=== PATIENT | female | born 1995 | race Hispanic/Latino ===

== ENCOUNTER → 2020-02-02 17:17 | Outpatient (CLI) | payer OTHER, SELFPAY ==
[2020-02-02 18:24] LABS: Specimen Label KIT TEST
[2020-02-04 11:49] LABS: HIV 1 & 2 Ab/Ag 4th Gen Combo NEGATIVE (NEGATIVE)
== END ==
PROVIDERS: Referring Provider Obstetrics & Gynecology; Visit Provider Obstetrics & Gynecology
DX: Z34.90 Encounter for supervision of normal pregnancy, unspecified, unspecified trimester (principal); Z36.0 Encounter for antenatal screening for chromosomal anomalies
CPT/HCPCS: 36415; 87389

== ENCOUNTER → 2020-02-26 16:46 | Outpatient (CLI) | payer OTHER, SELFPAY ==
[2020-02-29 06:27] LABS: AFP Value 43.9 ng/mL (.); Gest Age on Col Date 15.3 weeks (.); Gestational Age Ultrasound (.); Insulin Dep Diabetes No (.); OSBR Risk 1IN 2270 (.); Results Report (.); Test Results *Screen Negative* (.)
== END ==
PROVIDERS: Referring Provider Obstetrics & Gynecology; Visit Provider Obstetrics & Gynecology
DX: Z34.02 Encounter for supervision of normal first pregnancy, second trimester (principal); Z3A.15 15 weeks gestation of pregnancy
CPT/HCPCS: 36415; 82105

== ENCOUNTER → 2020-04-01 15:35 | Outpatient (CLI) | payer OTHER, SELFPAY ==
--- NOTE | 2020-04-01 15:36 | DI.US.S_ITS ---
PROCEDURE: US OB >= 14 WEEKS FETUS INDICATIONS: 20 week anatomy OUTSIDE/PRIOR DATING DATA: Last menstrual period (LMP): Not known. LMP-based estimated date of delivery (BLOSSOM): Not applicable First dating scan (date and location): April 01, 2020. Estimated date of delivery (BLOSSOM) from first dating scan: August 12, 2020. TECHNIQUE: Real-time scanning was performed of the fetus, with image documentation and biometric measurements. Endovaginal scanning: Performed COMPARISON: [facility], , OB <= 14 WEEKS FETUS, 02/02/2020, 16:56. FINDINGS: General: A single living intrauterine gestation is present. Presentation: Transverse/breech Placenta: Placental position is anterior, without previa. Amniotic fluid index: 12.7 cm, normal range is 5-24 cm. heart rate: 152 beats per minute. Maternal cervical canal: Closed and 4.6 cm long. Normal lower limit is 2.5 cm. biometrics: Biparietal diameter: 20 weeks 2 days Head circumference: 20 weeks 2 days Abdominal circumference: 21 weeks 6 days Femur length: 21 weeks 2 days Estimated gestational age from initial scan: not applicable. Composite gestational age from present scan: 21 weeks 0 days Estimated weight: 422 grams Measurement variability for biometric dating: +/- 7 days from 14 weeks to 15 weeks 6 days gestation, +/- 10 days from 16 weeks to 21 weeks 6 days gestation, +/- 2 weeks from 22 weeks to 27 weeks 6 days gestation, +/- 3 weeks for 28 weeks gestation or later. weight reference: 4500 g or EFW >90/95% is considered macrosomia or large for gestational age. EFW <10% is small for gestational age. EFW 5% or less is considered intra-uterine growth restriction. Anatomic survey: Neuro: Ventricles are non-dilated at less than 10 mm. Cisterna magna is normal at 3-11 mm. Cerebellum is normal in size and morphology. Nuchal skin fold: Normal at less than 6 mm between 14-21 weeks gestational age. Face: Nose and lips, facial profile are normal. Spine: No evidence for spina bifida. Heart: 4-chambered heart is present, with normal ventricular outflow tracts. Diaphragm: Diaphragm is intact. Stomach: Left-sided stomach is present. Kidneys: No hydronephrosis. Normal is less than 5 mm in 2nd trimester, less than 7 mm in 3rd trimester. Cord: 3-vessel cord has orthotopic insertion. Bladder: Normal in size. Extremities: All 4 extremities identified. IMPRESSION: 1. Single living intrauterine with ultrasound estimated gestational age of 21 weeks 0 days corresponding ultrasound BLOSSOM of August 12, 2020. 2. Normal anatomic survey Dictated by: Angelika Harrison MD, PhD on 04/01/2020 at 21:51 Approved by: Angelika Harrison MD, PhD on 04/02/2020 at 14:54
== END ==
PROVIDERS: Referring Provider Obstetrics & Gynecology; Visit Provider Obstetrics & Gynecology
DX: Z34.02 Encounter for supervision of normal first pregnancy, second trimester (principal); Z3A.21 21 weeks gestation of pregnancy
CPT/HCPCS: 76811

== ENCOUNTER → 2020-04-22 13:54 | Outpatient (CLI) | payer OTHER, SELFPAY ==
[2020-04-22 15:14] LABS: Free T4, Direct Thyroxine 0.86 ng/dL (0.78-2.19)
[2020-04-22 15:28] LABS: Thyroid Stimulating Hormone 10.4 uIU/mL (0.47-4.68)
== END ==
PROVIDERS: Referring Provider Obstetrics & Gynecology; Visit Provider Obstetrics & Gynecology
DX: C73 Malignant neoplasm of thyroid gland (principal)
CPT/HCPCS: 36415; 84439; 84443

== ENCOUNTER → 2020-05-28 08:39 | Outpatient (CLI) | payer OTHER, SELFPAY ==
[2020-05-28 10:09] LABS: Hematocrit 36.5 % (36-46); Hemoglobin 11.9 g/dL (12.0-16.0)
[2020-05-28 10:22] LABS: GTT (PREG) 1 Hour PP 50gm Dose 121 mg/dL (76-139)
== END ==
PROVIDERS: Referring Provider Obstetrics & Gynecology; Visit Provider Obstetrics & Gynecology
DX: Z34.02 Encounter for supervision of normal first pregnancy, second trimester (principal); Z3A.27 27 weeks gestation of pregnancy
CPT/HCPCS: 36415; 82950; 85014; 85018

== ENCOUNTER → 2020-07-18 11:55 | Outpatient (CLI) | payer OTHER, SELFPAY ==
[2020-07-19 15:35] LABS: Strep Grp B PCR NEG for Grp B Strep
== END ==
PROVIDERS: Referring Provider Obstetrics & Gynecology; Visit Provider Obstetrics & Gynecology
DX: Z34.03 Encounter for supervision of normal first pregnancy, third trimester (principal); Z3A.35 35 weeks gestation of pregnancy
CPT/HCPCS: 87653

== ENCOUNTER 2020-08-07 08:37 | Outpatient (CLI) | payer OTHER, SELFPAY ==
--- NOTE | 2020-08-07 09:12 | PM.OBTRLD ---
Visit Information Visit Information Date of evaluation: 08/07/20 Primary OB Provider: Tarsha Moore On-call OB Provider: Mikki Peña Reason for Evaluation: Yes rupture of membranes Vital Signs Vital Signs: blood pressure 124/72, pulse of 80, temperature 36.2? [facility] Medical History (Updated 08/07/20 @ 09:14 by Mikki Peña MD) Nasal fracture (~2013) Thyroid cancer (~2011) Surgical History (Updated 01/28/20 @ 08:37 by Norma Troncoso, RN) S/P surgery on nasal septum (~2016) Family History (Updated 01/28/20 @ 08:45 by Norma Troncoso, RN) Mother No problems noted. Father Cancer Grandmother No problems noted. Grandfather Diabetes mellitus Grandmother No problems noted. Grandfather Diabetes mellitus Family/Other Spina bifida Social History marital status: number of children: 0 household members: spouse lives independently: Yes caregiver/support person: No housing: house pets and animals: Yes (1 dog -- Decisive BI collie, in training, seems safe.) education level: college occupational status: employed current occupational exposures/hazards: Yes (Some aggressive children, but she is no longer seeing those children. ) romy/scientologist: Sikhism special romy needs: No seatbelt use: always Smoking Status: Never smoker second hand exposure: Yes (A friend smokes, she is staying away from it. ) alcohol intake: former substance use type: does not use during the past year weight has: remained stable well-balanced diet: daily or most days daily servings fruits/ve-4 caffeine: No (Not currently, aversion to coffee now.) Type(s) of exercise: walking and normal ROM and activity frequency: 5-6 times per week Review of Systems Review of Systems Narrative: Patient had multiple episodes of gushing fluid overnight with no contractions. Good movement. No fevers. ROS: Yes All systems reviewed with the patient and are negative except as otherwise documented Evaluation Evaluation Baseline heart rate: 140 Variability: Moderate (11-25) monitor accelerations: Present Monitor Decelerations: Absent Contraction Frequency (minutes): 7 Uterine Contraction Intensity: Mild Category of Tracing: Reactive Status: Category l Non-invasive Membranes Rupture Test: negative Diagnosis, Plan/Disposition Final Diagnosis (1) False labor: Status: Acute (2) 38 weeks gestation of : Status: Acute Plan/Disposition Plan: Patient evaluated for possible rupture membranes with negative testing. Precautions reviewed OB Disposition: home
== END 2020-08-07 09:18 | disposition home or self-care (01) ==
LOC: OB 08-08 14:49
PROVIDERS: Referring Provider Specialist; Visit Provider Specialist
DX: Z03.71 Encounter for suspected problem with amniotic cavity and membrane ruled out (principal); O47.1 False labor at or after 37 completed weeks of gestation; Z3A.38 38 weeks gestation of pregnancy
CPT/HCPCS: 59025; 84112; G0378; G0379

== ENCOUNTER 2020-08-13 02:15 | Outpatient (CLI) | payer OTHER, SELFPAY | END 2020-08-13 03:10 | disposition home or self-care (01) | LOC: LABOR 02:40 → OB 08-16 07:36 | PROVIDERS: Referring Provider Obstetrics & Gynecology; Visit Provider Obstetrics & Gynecology | DX: O36.8130 Decreased fetal movements, third trimester, not applicable or unspecified (principal); Z3A.39 39 weeks gestation of pregnancy | CPT/HCPCS: 59025; 84112; G0378; G0379 ==

== ENCOUNTER 2020-08-13 23:35 | Inpatient (IN) | payer OTHER, SELFPAY ==
[2020-08-14 00:37] LABS: Add Manual Diff / Slide Review NO; Basophils Absolute Auto 100 /uL (0-100); Basophils Percent Auto 0.5 % (0-2); Eosinophils Absolute Auto 100 /uL (0-450); Eosinophils Percent Auto 1.2 % (2-4); Hematocrit 36.3 % (36-46); Hemoglobin 11.8 g/dL (12.0-16.0); Lymphocytes Absolute Auto 900 /uL (1100-4500); Lymphocytes Percent Auto 7.5 % (25-40); Mean Corpuscular HGB Conc 32.6 % (30-36); Mean Corpuscular Hemoglobin 28.2 PG (26-34); Mean Corpuscular Volume 86.6 fL (80-100); Monocytes Absolute Auto 800 /uL (0-900); Monocytes Percent Auto 6.8 % (3-14); Neutrophils Absolute Auto 10300 /uL (1500-7000); Platelet Count 175 X10^3/uL (150-400); Red Blood Cell Count 4.19 X10^6/uL (4.0-5.2); Red Cell Distribution Width 14.5 % (11.6-14.8); White Blood Cell Count 12.3 X10^3/uL (4.5-11.0)
[2020-08-14 01:24] LABS: COVID19 - ADMIT (NP swab/PCR) Negative (Negative)
--- NOTE | 2020-08-14 01:49 | PM.AN.REGBLK ---
Regional Block Pre-procedure Procedure: Continuous Lumbar Epidural for L&D Attending OB provider: Kp Bassett PM/JHONNY narrative: term labor, no complications ASA Class: II Labs: Hct 36.3 % (36-46) 08/14/20 00:20 Plt Count 175 X10^3/uL (150-400) 08/14/20 00:20 Medications: Current Medications Generic Name Dose Route Start Last Admin Trade Name Freq PRN Reason Stop Dose Admin Carboprost Tromethamine 250 mcg 08/14/20 00:24 Carboprost 250 Mcg/Ml Ampul IM Q90M PRN Bleeding Diphenhydramine HCl 25 mg 08/14/20 01:40 Diphenhydramine 50 Mg/Ml Vial IV Q10M PRN Pruritis Fentanyl 50 mcg 08/14/20 00:24 Fentanyl 100 Mcg/2 Ml Inj IV Q1H PRN Pain, Moderate (4-6) Lactated Ringer's 1,000 mls @ 100 mls/hr 08/14/20 00:30 Lactated Ringers IV CONT ARTIS Oxytocin/Lactated Ringer's 30 unit in 500 mls @ 200 mls/hr 08/14/20 00:24 Oxytocin Premix IV CONT PRN Bleeding Protocol Tranexamic Acid 1,000 mg/ 100 mls @ 200 mls/hr 08/14/20 00:24 Sodium Chloride IV NOW PRN Bleeding FENT 2MCG/ML BUPIV 0.125% EPI 200 mcg in 100 mls @ 6 mls/hr 08/14/20 01:45 Fentanyl/Bupiv/Ns 2mcg/Ml - 0.125% EPIDURAL CONT ARTIS Methylergonovine Maleate 0.2 mg 08/14/20 00:24 Methylergonovine 0.2 Mg Tablet PO Q6HR PRN Heavy Bleeding Methylergonovine Maleate 0.2 mg 08/14/20 00:24 Methylergonovine 0.2 Mg/Ml Vial IM NOW PRN Bleeding Misoprostol 800 mcg 08/14/20 00:24 Misoprostol 200 Mcg Tablet NV NOW PRN Bleeding Misoprostol 1,000 mcg 08/14/20 00:24 Misoprostol 200 Mcg Tablet NV NOW PRN Bleeding Misoprostol 400 mcg 08/14/20 00:24 Misoprostol 200 Mcg Tablet SL NOW PRN Bleeding Naloxone HCl 0.2 mg 08/14/20 00:24 Naloxone 0.4 Mg/Ml Vial IV Q2MIN PRN Opiate Reversal Ondansetron HCl 4 mg 08/14/20 00:24 Ondansetron 4 Mg/2 Ml Inj IV Q4HR PRN Nausea And Vomiting Oxytocin 10 unit 08/14/20 00:24 Oxytocin 10 Unit/Ml Vial IM NOW PRN Bleeding Allergies: Allergies Allergy/AdvReac Type Severity Reaction Status Date / Time No Known Drug Allergies Allergy Verified 01/28/20 08:30 Procedure Insertion date: 08/14/20 Insertion time: 01:35 Prep/Local: betadine x3 Interspace: L3-4 Patient position: sitting Needle: 18 gauge PlayLabtead (CSE: 27g Pencan through Hustead, brief L paresthesia, clear CSF, unable to aspirate, repositioned Hustead, repeated 27g Pencan through Hustead, no paresthesia, clear CSF, 1mL 0.25% bupivacaine) Loss of resistance with: saline JOSE DANIEL at (cm): 5 Catheter placed at SKIN (cm): 10 Catheter in SPACE (cm): 5 Insertion: No CSF, No Blood, No Paresthesia with insertion, No Paresthesia with injection and No Test dose reaction Initial Medications TEST DOSE time: 01:35 BOLUS DOSE time: 01:48 BOLUS DOSE (mL): 5 BOLUS DOSE med: other (infusate) Infusion INFUSION: 0.125% bupivacaine and with fentanyl 2 mcg/mL Initial rate (mL/hr): 8 Post-procedure Anesthesia time START: 01:22 Anesthesia time END: 08:44
[2020-08-14] MEDS: LACTATED RINGERS 1,000 ML 100 ML IV ×2 (02:15→10:11)
[2020-08-14] MEDS: OXYTOCIN PREMIX 30 UNIT/500 ML PLAST..BAG IV (05:57)
[2020-08-14] MEDS: FENT 2MCG/ML BUPIV 0.125% EPI 200 MCG/100 ML PLAST..BAG 8 MCG EPIDURAL (08:00)
--- NOTE | 2020-08-14 09:09 | PM.OBHP.1 ---
OB HPI Date/Time Date of admission: 08/14/20 Date Patient Seen: 08/14/20 Time Patient Seen: 09:10 History of Present Condition Chief complaint: Evaluation of Labor : 1 Para: 0 Estimated Date of Delivery: 08/17/20 Estimated Gestational Age (weeks): 39+4 Narrative: Tanya Renee is a 25 year old BLOSSOM 08/17/[address] [place] [address] who transferred care from the [facility]. Patient had stopped oral contraceptive pills 3 months prior to conception, and had taken Plan B with that cycle. The patient reports mild and improving nausea, as no other complaints today obstetrical or otherwise. This is an unplanned but desired , and she has a supportive . 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 TFTs were normal in the 1st trimester, with plan as above. Her course has largely been uneventful. GBS negative. Growth 07/26/2020, 6 lb 9 oz., BPP 8/8 with RUDDY 15.1. She presents now in early labor with demonstrable cervical change in the face of Q 3-5 minute contractions and increasing discomfort. A continuous lumbar epidural has been placed and is providing the patient with excellent pain relief in labor. heart rate is category 1 with baseline 125 B p.m., accelerations noted, no decelerations noted, moderate variability. Contractions are q.3h to 4 minutes and she is currently on Pitocin 4 units for augmentation. History of Present care: good care Dating criteria: LMP confirmed by 1st trimester US Obstetrical complications: none Preadmission Labs Blood type: O (+) positive -: Antibody screen: negative, GBS status: negative, HBsAG: negative, HIV: negative and RPR/VDLR: negative -: Chlamydia screen: not detected and Gonorrhea screen: not detected -: Rubella: immune and Varicella: immune HCT: 36.3 HCAB: negative Quad screen: Normal 1 hr GTT: 121 Prior (ies) History: Primigravida Evaluation Evaluation Baseline heart rate: 125 Variability: Moderate (11-25) monitor accelerations: Present Monitor Decelerations: Absent Contraction Frequency (minutes): 3 Uterine Contraction Intensity: Strong/Firm Category of Tracing: Reactive Status: Category l Cervical dilation (cm): 10 Cervical effacement (%): 100 station: +1 Laboratory results: Laboratory Tests 08/14/20 08/14/20 08/14/20 00:20 00:20 00:20 WBC 12.3 H RBC 4.19 Hgb 11.8 L Hct 36.3 MCV 86.6 MCH 28.2 MCHC 32.6 RDW 14.5 Plt Count 175 Neut % (Auto) 84.0 H Lymph % (Auto) 7.5 L [place] % (Auto) 6.8 Eos % (Auto) 1.2 L Baso % (Auto) 0.5 Neut # (Auto) 21741 H Lymph # (Auto) 900 L [place] # (Auto) 800 Eos # (Auto) 100 Baso # (Auto) 100 SARS-CoV-2 (PCR) Negative Blood Type O Positive Antibody Screen Negative [facility] Medical History Nasal fracture (~2013) Thyroid cancer (~2011) Surgical History (Updated 01/28/20 @ 08:37 by Norma Troncoso RN) S/P surgery on nasal septum (~2016) Family History (Updated 01/28/20 @ 08:45 by Norma Troncoso, CHUY) Mother No problems noted. Father Cancer Grandmother No problems noted. Grandfather Diabetes mellitus Grandmother No problems noted. Grandfather Diabetes mellitus Family/Other Spina bifida Social History marital status: number of children: 0 household members: spouse lives independently: Yes caregiver/support person: No housing: house pets and animals: Yes (1 dog -- Border collie, in training, seems safe.) education level: college occupational status: employed current occupational exposures/hazards: Yes (Some aggressive children, but she is no longer seeing those children. ) romy/restorationism: Confucianism special romy needs: No seatbelt use: always Smoking Status: Never smoker second hand exposure: Yes (A friend smokes, she is staying away from it. ) alcohol intake: former substance use type: does not use during the past year weight has: remained stable well-balanced diet: daily or most days daily servings fruits/ve-4 caffeine: No (Not currently, aversion to coffee now.) Type(s) of exercise: walking and normal ROM and activity frequency: 5-6 times per week Meds Home Medications and Allergies Home Medications Medication Instructions Recorded Confirmed Type cholecalciferol (vitamin D3) 125 125 mcg PO DAILY 01/28/20 01/28/20 History mcg (5,000 unit) capsule levothyroxine 150 mcg tablet 150 mcg PO DAILY 01/28/20 01/28/20 History methylcellulose (laxative) 500 mg 500 mg PO DAILY 01/28/20 01/28/20 History tablet (Fiber Therapy (methylcellulose)) prenat.vits,bharathi,[id number] 1 tab PO DAILY 01/28/20 01/28/20 History Allergies Allergy/AdvReac Type Severity Reaction Status Date / Time No Known Drug Allergies Allergy Verified 01/28/20 08:30 Review of Systems Review of Systems ROS: Yes All systems reviewed with the patient and are negative except as otherwise documented Exam Const General: cooperative and comfortable Nutritional Appearance: well nourished Orientation: alert and oriented x3 HENMT Head: normal to inspection Ears: hearing grossly normal bilaterally Nose: external nose normal Eyes General: appearance normal, both eyes and all related structures Neck Neck: normal visual inspection Resp Effort & Inspection: normal respiratory effort and able to speak in complete sentences Auscultation: clear to auscultation bilaterally Cardio Rate: regular rate Rhythm: regular rhythm Heart Sounds: S1 normal, S2 normal and no murmurs GI Inspection: normal to inspection and other (gravid) Palpation: soft, no hepatosplenomegaly and No tender Uterus Location (Fundal Height): 36 Presentation: vertex Estimated Weight (lbs): 8 Amniotic Fluid: clear (AROM 0930 08/14/2020) Back/Spine/Pelvis Back: normal to inspection Extrem General: normal to inspection and calf tenderness Psych Appearance: grossly normal Mental Status: mental status grossly normal Speech and Movement: speech and movement normal Mood: congruent mood Affect: normal affect Attitude: cooperative Thought Process: normal Thought Content: normal Objective Labs Result Diagrams: 08/14/20 00:20 Labs: Laboratory Results - last 24 hr 08/14/20 08/14/20 08/14/20 00:20 00:20 00:20 WBC 12.3 H RBC 4.19 Hgb 11.8 L Hct 36.3 MCV 86.6 MCH 28.2 MCHC 32.6 RDW 14.5 Plt Count 175 Neut % (Auto) 84.0 H Lymph % (Auto) 7.5 L [place] % (Auto) 6.8 Eos % (Auto) 1.2 L Baso % (Auto) 0.5 Neut # (Auto) 40049 H Lymph # (Auto) 900 L [place] # (Auto) 800 Eos # (Auto) 100 Baso # (Auto) 100 SARS-CoV-2 (PCR) Negative Blood Type O Positive Antibody Screen Negative Assessment and Plan Assessment and Plan Assessment and Plan narrative: 1. Intrauterine gestation, Mae, vertex, term - Uncomplicated first , GBS negative 2. Spontaneous active phase labor - Anticipate - See orders 3. Post-surgical hypothyroidism; Clinically euthyroid - Recheck TSH and T4 with AM draw 08/15/2020 Time Spent with Patient Total time spent with greater than 50% in coordination of care (as documented) at patient's floor/unit and/or counseling patient:: 15-24 minutes
--- NOTE | 2020-08-14 11:48 | PM.OBPRVD ---
Events: Other (Maternal hypothyroidism) Labor & Delivery Delivery date: 08/14/20 Intrapartal Events: None Cervical ripening method: none Induction method: none Delivery augmentation: rupture of membranes and pitocin Delivery monitor: external FHT, external uterine and internal FHT Route of delivery: Episiotomy description: None L&D Laceration Description: Perineal - 2nd Degree and Labial (Left, 1st degree) Delivery repair: chromic Estimated blood loss (mL): 250 Anesthesia Type: Epidural Complications: None. Narrative: With the patient under satisfactory continuous lumbar epidural anesthesia in the modified dorsal lithotomy position the patient actively pushed in the 2nd stage and brought the baby down to the perineum where she had spontaneous delivery direct OA over an intact perineum of a viable male infant Apgars 8/9 and a weight of 3766 gms.(8# 4.8oz.). The shoulders delivered without difficulty and the was placed on the mother's abdomen with the umbilical cord clamping delayed for 90 seconds. The placenta was then delivered with gentle cord traction and suprapubic pressure. The placenta was noted to be intact with central insertion of the umbilical cord and 3 vessels noted. The perineum and lower vagina were all inspected carefully with the lacerations as noted above. Two 0 chromic catgut suture was used to close all lacerations and hemostasis was excellent at the completion of the closure. Sponge, instrument, and needle counts were correct both before and after the procedure. Approximate EBL was 250 cc. QBL pending. Mother and infant tolerated the delivery well and the baby is having skin to skin contact and is being initiated. Baby 1: Infant gender: Male Presentation: vertex Position: Right Occiput Anterior Placenta delivery description: Spontaneous Cord Vessel Description: 3 Vessels and Clamped/Cut score (1 min): 8 score (5 min): 9 weight: 8 lb 4.842 oz Plan for aftercare: Routine care
[2020-08-14 13:23] VITALS: TEMP 37.2
[2020-08-14] MEDS: IBUPROFEN 600 MG TABLET PO ×2 (13:23→18:37)
[2020-08-14] MEDS: ACETAMINOPHEN 325 MG TABLET 650 MG PO (18:00)
[2020-08-15] MEDS: IBUPROFEN 600 MG TABLET PO ×2 (00:33→07:46)
[2020-08-15] MEDS: ACETAMINOPHEN 325 MG TABLET 650 MG PO ×2 (00:33→07:47)
[2020-08-15] MEDS: DOCUSATE 100 MG CAPSULE PO (07:48)
[2020-08-15 08:02] LABS: Add Manual Diff / Slide Review NO; Basophils Absolute Auto 0 /uL (0-100); Basophils Percent Auto 0.4 % (0-2); Eosinophils Absolute Auto 200 /uL (0-450); Eosinophils Percent Auto 1.5 % (2-4); Hematocrit 30.4 % (36-46); Hemoglobin 10.1 g/dL (12.0-16.0); Lymphocytes Absolute Auto 1000 /uL (1100-4500); Lymphocytes Percent Auto 9.3 % (25-40); Mean Corpuscular HGB Conc 33.1 % (30-36); Mean Corpuscular Hemoglobin 28.7 PG (26-34); Mean Corpuscular Volume 86.9 fL (80-100); Monocytes Absolute Auto 700 /uL (0-900); Monocytes Percent Auto 6.8 % (3-14); Neutrophils Absolute Auto 8400 /uL (1500-7000); Platelet Count 149 X10^3/uL (150-400); White Blood Cell Count 10.3 X10^3/uL (4.5-11.0)
[2020-08-15] MEDS: PRENATAL VIT,CALC/IRON/FOLIC 1 TABLET 1 TAB PO (09:10)
[2020-08-15] MEDS: FERROUS SULFATE 325 MG TABLET PO (09:10)
--- NOTE | 2020-08-15 11:11 | P.DS_ITS ---
Discharge Providers Provider Date of admission: 08/13/20 23:35 Discharge Date: 08/15/20 Primary care physician: MD Stacie Consults: 08/14/20 00:27 Consult to Anesthesiology Urgent Comment: Consulting Provider: Anesthesiologist Reason for consultation: labor epidural 08/15/20 11:43 Consult to Supervisor Travel Trailer Routine Comment: Discharge provider: Kp Bassett MD Summary Hospital Course Date Patient Seen: 08/15/20 Time Patient Seen: 11:11 Diagnoses: Intrauterine , gonzales, term, delivered Maternal Hypothyroidism Hospital Course: The patient was admitted in early labor late on the evening of 08/13/2020, received an epidural in labor early on the morning of 08/14/2020 and later on the morning of 08/14/2020 delivered a viable male infant Apgars 8/9 and a weight of 3766 gms.(8# 4.8oz.). Her 1st day hemoglobin and hematocrit were consistent with observed operative losses at 10.1 and 30.4 respectively. following delivery she has had prompt return of bowel and bladder function, is ambulating well, tolerating a regular diet, and her pain is well controlled with oral Tylenol and/or ibuprofen. She will be discharged at this time to home and in afebrile normotensive condition after counseling regarding precautionary symptoms, limitations of activity, medications, and plans for follow-up. She will be seen in the office in the next few weeks by Dr. Tarsha Moore and medications at discharge include OTC Tylenol, ibuprofen 600 mg p.o. q.6 hours as needed pain, Colace 100 mg p.o. b.i.d. times 30 days, and Synthroid 150 mcg p.o. q.d.. At the time of discharge she is undecided regarding contraception but will discuss with Dr. moore at her follow-up visit. Peripartum Data Delivery Method: Natural Vaginal Laceration Description: Perineal - 2nd Degree and Labial (Left) Episiotomy description: None complications: none [place] 1: Gender: Male Disposition of : home Discharge Diagnosis (1) Hypothyroidism complicating : Status: Acute (2) , delivered: Status: Acute Status at Discharge Cognitive/behavioral status at discharge: at baseline, oriented Functional status at discharge: independent ambulation Overall status at discharge: patient is progressing back to baseline Time Spent with Patient Time attestation: Total time spent providing and/or coordinating discharge services: Time spent: Less than 30 minutes Objective Labs Result Diagrams: 08/15/20 07:10 Labs: Laboratory Results - last 24 hr 08/15/20 07:10 WBC 10.3 RBC 3.50 L Hgb 10.1 L Hct 30.4 L MCV 86.9 MCH 28.7 MCHC 33.1 RDW 15.0 H Plt Count 149 L Neut % (Auto) 82.0 H Lymph % (Auto) 9.3 L [place] % (Auto) 6.8 Eos % (Auto) 1.5 L Baso % (Auto) 0.4 Neut # (Auto) 8400 H Lymph # (Auto) 1000 L [place] # (Auto) 700 Eos # (Auto) 200 Baso # (Auto) 0 Exam Const General: cooperative and comfortable Nutritional Appearance: average body habitus HENMT Head: normal to inspection Ears: hearing grossly normal bilaterally Nose: external nose normal Eyes General: appearance normal, both eyes and all related structures Resp Effort & Inspection: normal respiratory effort and able to speak in complete sentences Auscultation: clear to auscultation bilaterally Cardio Rate: regular rate Rhythm: regular rhythm Heart Sounds: S1 normal, S2 normal and no murmurs GI Inspection: normal to inspection and other (U-3 cm, firm, NT) External Female Exam: other (OB laceration repair intact with minimal bruising) Extrem General: normal to inspection and No calf tenderness Right lower extremity: edema Details: non-pitting Left lower extremity: edema Details: non-pitting Psych Appearance: grossly normal Mental Status: mental status grossly normal Speech and Movement: speech and movement normal Mood: congruent mood Affect: normal affect Attitude: cooperative Thought Process: normal Thought Content: normal Judgment: judgment good Discharge Plan Discharge Plan Patient Disposition: Home Provider Discharge Comment: Congratulations and thanks for letting us be part of your experience. Here are some things to consider following delivery: General activities The more you are up and out of bed, the faster your recovery will be. You may gradually resume your normal activities as soon as you wish, beginning with mild exercise, like walking. The benefits of exercise include improved muscle tone, quicker healing and a more positive attitude. Fresh air and sunshine are refreshing for both you and your baby. Avoid heavy lifting, strenuous exercise and excessive stair climbing. Refer to your doctor?s specific activity restrictions given to you when you leave the hospital. A good rule to follow is that you should not lift anything heavier than your baby in the car seat. It is common for women to have swelling, especially in their legs and feet. This is the body?s way of getting rid of some of the excess fluid accumulated in . It can take up to two weeks for the swelling to resolve. Elevate your feet when sitting or lying down and make sure you drink a lot of fluids to help your body get rid of the excess fluid. Call your doctor if one leg is much more swollen than the other, if you have pain in your leg when walking or if there is a red hot area in one leg. Start Kegel exercises immediately after delivery. This movement is similar to stopping the flow of urine. Squeeze for three seconds and release. Begin with 10 repetitions twice a day, gradually building up to 100 repetitions twice a day. This will help with healing as well as minimize bladder leakage (stress incontinence). Try to get as much rest as you can. Plan to get at least one nap a day as you will be up frequently during the night with the baby. A good time to nap is when the baby sleeps. Lack of sleep can affect your mood and can increase anxiety. Allow friends and relatives to help with housework, cooking and other chores. Shower as often as you like, but avoid tub baths or swimming until after your checkup. There should be nothing placed in the vagina until after your checkup. This means no tampons, douching or intercourse (sex). Your follow-up appointment will be scheduled by our office staff following your delivery. Driving should be avoided for one to two weeks, or until the operation of an automobile will not be painful or cause undue exertion. Do not drive if you are taking narcotics for pain relief. Refer to the discharge instructions from your physician or call your doctor?s office. Nutrition Good nutrition and adequate fluids are necessary for tissue repair, healing, and general health. Refrain from any weight-reducing diets until after your checkup. Most women lose eight to 10 pounds just from delivery. It takes almost a full year to return to your pre- weight. If you are , continue to take your vitamins. Eat a well- balanced diet that is high in protein (meat, fish, legumes), fiber (fruits, vegetables, whole grains), calcium (milk, yogurt, cheese, green leafy vegetables) and fluids. If you have a family history of food allergies or are concerned about food allergies for your baby while , consult your physician for guidance. Bowel care Concern about the ability to have a bowel movement is common after having a baby. Often mothers fear tearing their stitches or experiencing pain. Bowel function should return to normal three to four days after delivery. A diet high in fiber and fluids can help avoid constipation. Walking promotes bowel movements, passing gas and increased general circulation. Raising your feet onto a stool during a bowel movement can help decrease straining. For constipation, take an bibo-bno-dkojvqf stool softener (Colace, Metamucil) or add prunes, prune juice or bran to your diet. If you have additional questions, please contact your doctor?s office. Uterine changes/bleeding/perineal care Your uterus should feel firm after delivery. You will feel contractions (afterbirth pains) after delivery as your uterus works to get back to a non- size. These pains tend to get more intense with each delivery. mothers may experience more cramping during and after feeding, especially in the early weeks. These contractions are temporary. Use relaxation/breathing techniques and the pain medications prescribed by your doctor to lessen discomfort. Continue to use the patricia-bottle to clean your perineum, rinsing front to back with warm water until the bleeding stops. Use your sitz-bath as directed; this will help dissolve any stitches and aid in healing the perineum. The first few days after delivery, your bleeding (also called lochia) is bright red; it changes to dark red, then brown, much like a normal period. This bleeding usually lasts two to four weeks. You may have light bleeding or continue to spot for up to six weeks. In the first days home, you may notice an increase in bleeding or darkening in bleeding due to increased activity; this may be a sign that you need more rest. You may also notice that you pass some blood clots, especially if you have been sitting or lying down for long periods of time. This is normal. If you are passing frequent clots or clots larger than an egg, please contact your health care provider. If you are , your first period may not start until after you wean your baby. If you are not , your first period will probably start four to six weeks after delivery and may be unusually heavy. Remember, even if you are , ovulation and fertility can return at any time, so it is important to use contraception. Make sure you discuss your options with your doctor/finished garment inspector before resuming sexual relations. To allow for mom?s complete recovery, it is recommended that children be spaced at least 18 months apart. Breast care Wear a well-fitting bra. Nurse the baby as frequently as possible. Make sure your baby is latched properly to avoid sore or cracked nipples. You can express a small amount of breast milk on your nipples after feeding and let it air dry. Refer to the information included in this booklet for assistance with . If your breasts become engorged (very full/firm and tender), use ice packs for 15 to 20 minutes at a time. Lie flat while applying ice, if possible. You may also use [id number] pain relievers. Engorgement usually resolves in two to three days. If you are still experiencing significant discomfort, please contact your doctor?s office for an appointment. You may want to contact a biz[employer] consultant or the [facility] for additional support and information. If you have a fever higher than 100.4?F; a lump; or red, sore or hot area in the breast that does not go away after nursing, contact your doctor. Psychological adjustment Families go through many changes when a new baby is born. All family members are adjusting. Mothers experience a wide range of emotions. Mild feelings of sadness, depression and anxiety are common and are due to hormonal changes, lack of sleep and the demanding job of caring for a . These are frequently referred to as the ?baby blues.? These feelings are usually temporary and self- limiting. depression is less common and more serious. It is characterized by feelings of depression, anxiety, worry, hopelessness and lack of self-worth. It may also include thoughts of hurting yourself or the baby. depression requires treatment by a therapist and often medication. Please contact your doctor/finished garment inspector if you or your family has any concerns about your mental health. Neither of these conditions reflects your feelings for your baby, your partner or your abilities as a mother. You cannot control these feelings, but they can be helped. There are medications that are safe to take while . [employer]: www..net, 2-510-552-4PPD Other ways you and your family can adjust to a new baby are: ?Rest/sleep when the baby sleeps. ?Eat a well-balanced diet. Now is not the time for dieting or junk food. ?Be flexible. It takes time to get to know your baby. ?Let others help you. Accept offers to bring dinner, go to the market or do other necessary chores. ?Spend special time with your other children and your partner. A new baby is an adjustment for them as well. ?If you have other young children, put together a box/basket of age-appropriate special snacks, toys and activities that only comes out when you are feeding the baby. Make sure to include a book so you can all read together while the baby is being fed. ?Talk to other parents who are going through some of the same experiences. When to call the doctor ?Frequent urgency or burning upon urination ?Temperature of 100.4?F or above ?Unrelieved pain in your back, side or incision ?Bloody or pus-like drainage from your incision ?No bowel movement for four days or longer ?Bleeding stays heavy despite rest ?Saturating a pad an hour ?Passing many clots or passing clots larger than an egg (some clots are normal if you have been sitting or lying down for long periods of time) ?Foul-smelling bleeding ?Severe headache that is not relieved by a snack, nap and acetaminophen or visual disturbances like blurred vision or tunnel vision ?Social withdrawal or persistent baby blues/depression ?Hot, firm, red area in the breast ?If one leg is much more swollen than the other; you have pain in your leg when walking; or there is a red, hot area, especially in the back of your leg Discharge orders & Medications Prescriptions: New docusate sodium [DOK] 100 mg Capsule 100 mg PO BID 30 Days Qty: 60 RF: 2 ibuprofen 600 mg Tablet 600 mg PO Q6HR PRN (Reason: Pain, Mild (1-3)) Qty: 90 RF: 0 Continued levothyroxine 150 mcg tablet 150 mcg PO DAILY RF: 0 prenat.vits,bharathi,bue-hedm-obzlj Tablet 1 tab PO DAILY RF: 0 cholecalciferol (vitamin D3) 125 mcg (5,000 unit) capsule 125 mcg PO DAILY RF: 0 Fiber Therapy (m-cellulose) 500 mg tablet 500 mg PO DAILY RF: 0 Follow up/Referrals: Tarsha Moore MD [Physician] - (Call to schedule your six week follow up appointment with Dr. Moore.) Doctor Simon MD [Primary Care Provider] - Skin/Wound/Dressing Care Report to your healthcare provider any signs of infection, such as:: chills, fever, increased pain, unusual drainage and unusual redness Visit Report/Discharge Packet Instructions: DI for Labor and Delivery, Vaginal Stand Alone Forms: Discharge: Care Discharge Data Primary Care Provider: Doctor Aurora
[2020-08-15 12:04] VITALS: BP 107/63; PULSE 82; RESP 16; TEMP 36.9
== END 2020-08-15 13:10 | disposition home or self-care (01) | DRG 768 ==
PROVIDERS: Admitting Provider Obstetrics & Gynecology; Referring Provider Obstetrics & Gynecology; Visit Provider Obstetrics & Gynecology
DX: O99.282 Endocrine, nutritional and metabolic diseases complicating pregnancy, second trimester (principal); Z37.0 Single live birth; E89.0 Postprocedural hypothyroidism; O70.1 Second degree perineal laceration during delivery; Z3A.39 39 weeks gestation of pregnancy; Z20.822 Contact with and (suspected) exposure to COVID-19
CPT/HCPCS: 01967; 36415; 59025; 59050; 59400; 59409; 84112; 85025; 86850; 86900; 86901; 87635; C9803; G0378; G0379; J2590